=== PATIENT | female | born 1965 | race Caucasian/White ===

== ENCOUNTER 2017-07-26 16:38 | Emergency (ER) | payer OTHER ==
[2017-07-26 16:47] VITALS: BP 153/89; PULSE 84; TEMP 98.2; BMI 22.1
--- NOTE | 2017-07-26 16:49 | PDOC ---
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 Denies other injuries. Injury happened approximately one hour prior to arrival. - Physicial Exam PE: 07/28/17 03:16 Agree with resident exam. 2 cm superficial laceration to the distal R 2nd digit. - Medical Decision Making 07/28/17 03:17 Pt presents to the ED with finger laceration. Repaired in the ED. Will discharge home.
[2017-07-26] MEDS ORDERED: DIPHTH,PERTUSS(ACELL),TET 0.5 ML DISP.SYRIN IM ONE (17:10)
--- NOTE | 2017-07-26 17:10 | PDOC ---
History of Present Illness - General Chief Complaint: Laceration Stated Complaint: left 2nd finger lac Time Seen by Provider: 07/26/17 17:09 History Source: Patient Exam Limitations: No Limitations - History of Present Illness Initial Comments: 07/26/17 17:09 The patient is a 52F who presents with a R 2nd finger laceration. Clean cut at home on a knife. Unknown last tetanus. She says she has done the same thing 2 years ago. Denies any other complaints. Past History - Past Medical History Allergies/Adverse Reactions: Allergies Allergy/AdvReac Type Severity Reaction Status Date / Time bacitracin Allergy Verified 07/26/17 16:39 Home Medications: Ambulatory Orders Duloxetine HCl [Cymbalta] 40 mg PO DAILY 07/26/17 Montelukast Na [Singulair -] 10 mg PO HS 07/26/17 Zolpidem Tartrate [Ambien Cr] 12.5 mg PO HS 07/26/17 CVA: No COPD: No Other medical history: denies - Immunization History Immunization Up to Date: Yes - Suicide/Smoking/Psychosocial Hx Smoking History: Never smoked Have you smoked in the past 12 months: No Hx Alcohol Use: No Drug/Substance Use Hx: No Substance Use Type: None *Physical Exam - Vital Signs Last Vital Signs Temp Pulse Resp BP Pulse Ox 98.2 F 84 16 153/89 100 07/26/17 16:38 07/26/17 16:38 07/26/17 16:38 07/26/17 16:38 07/26/17 16:38 - Physical Exam General Appearance: Yes: Nourished, Appropriately Dressed HEENT: positive: Normal Voice, Hearing Grossly Normal Integumentary: positive: Other (1 cm curvilinear lac on distal 2nd finger, clean ) Procedures - Laceration/Wound Repair Right Medial Hand 2nd digit Wound Length: to 2.5 cm Wound Explored: clean Wound's Depth, Shape: superficial Irrigated w/ Saline: Yes Betadine Prep: No Anesthesia: 1% Lidocaine Amount of Anesthetic (ccs): 1 Wound Debrided: minimal Wound Repaired With: Sutures Suture Size/Type: 4:0 Number of Sutures: 3 Layer Closure: No Sterile Dressing Applied: Yes Splint Applied: Yes Sling Applied: No Medical Decision Making - Medical Decision Making 07/26/17 17:12 Pt is a 52F who presents with a curvilinear lac. Cleaned and sutured with good approximation. I have informed the patient on reasons to return to the ER. Will d/c home. *DC/Admit/Observation/Transfer Diagnosis at time of Disposition: Laceration - Discharge Dispostion Disposition: HOME Condition at time of disposition: Stable - Referrals - Patient Instructions Printed Discharge Instructions: DI for Laceration Repair Additional Instructions: Please return to the ER if symptoms persist, worsen, or new symptoms arise. Please follow up with your primary care physician in 10 days for stitch removal. Please return if you have redness, pain, drainage, pus, fever, chills, or vomiting. These are signs your cut may be infected. Please return to the ER if you have any signs or symptoms of chest pain, shortness of breath, uncontrollable fever, chills, nausea, vomiting, numbness, tingling, or weakness in any part of your body, changes in vision, or slurred speech. - Post Discharge Activity
== END 2017-07-26 17:16 | disposition home or self-care (01) ==
LOC: FER 16:38
PROC: 0HQFXZZ Repair Right Hand Skin, External Approach (ICD-10-PCS; principal; 2017-07-26)
PROC: 3E0234Z Introduction of Serum, Toxoid and Vaccine into Muscle, Percutaneous Approach (ICD-10-PCS; 2017-07-26)
DX: S61.210A Laceration without foreign body of right index finger without damage to nail, initial encounter (principal); W26.0XXA Contact with knife, initial encounter; Y93.89 Activity, other specified; Y92.009 Unspecified place in unspecified non-institutional (private) residence as the place of occurrence of the external cause
CPT/HCPCS: 90715; 99282-25